=== PATIENT | female | born 1955 | race American Indian/Alaskan Native ===

== ENCOUNTER 2017-08-29 09:53 | Outpatient (CLI) | payer OTHER ==
--- NOTE | 2017-08-31 12:14 | Mammography Report ---
Screening mammogram: Routine views demonstrates a focal area of architectural distortion in the upper outer left breast. The remainder the breast pattern is that of intermediate fibroglandular density in a generally symmetric and unremarkable pattern. CAD used. Impression: Left asymmetry. This patient's prior exams are being requested for comparison before additional recommendation. A followup report will be issued. BI-RADS CATEGORY: 0 = Needs additional imaging evaluation ACR BI-RADS MAMMOGRAPHIC CODES: 0 = Needs additional imaging evaluation; 1 = Negative; 2 = Benign; 3 = Probably benign; 4 = Suspicious; 5 = Malignant; 6 = Known biopsy-proven malignancy COMMENT: 1. Dense breast tissue, i.e., adenosis, fibrocystic changes, etc., may obscure an underlying neoplasm. 2. Approximately 10% of cancers are not detected with mammography. 3. A negative mammography report should not delay biopsy if a clinically suspicious mass is present. The
== END 2017-08-29 09:54 | disposition home or self-care (01) ==
LOC: MAMMO 09:53
DX: Z12.31 Encounter for screening mammogram for malignant neoplasm of breast (principal)
CPT/HCPCS: 77067